=== PATIENT | male | born 1935 | race Caucasian/White ===

== ENCOUNTER 2019-11-12 16:43 | Inpatient (IN) | payer OTHER ==
[~2019-11-12] VITALS: Ht 183.4 cm; Wt 99.8 kg
[2019-11-12] MEDS ORDERED: IPRATROPIUM NEB FS 0.5 MG/2.5 ML AMPUL.NEB ONE (16:56)
[2019-11-12] MEDS ORDERED: ALBUTEROL FS 2.5 MG/3 ML VIAL.NEB ONE (16:56)
[2019-11-12] MEDS ORDERED: ALBUTEROL FS 2.5 MG/3 ML VIAL.NEB NEB ONE (17:00)
[2019-11-12] MEDS ORDERED: IPRATROPIUM NEB FS 0.5 MG/2.5 ML AMPUL.NEB NEB ONE (17:00)
[2019-11-12 17:11] LABS: BASOPHILS % (AUTO) 0.4 % (0.0-2.0); EOSINOPHILS % (AUTO) 0.2 % (0.0-6.0); HEMATOCRIT 42 % (39-51); HEMOGLOBIN 13.7 g/dL (13.5-17.5); LYMPHOCYTES % (AUTO) 13.6 % (20.0-44.0); MEAN CORPUSCULAR HGB CONC 33 g/dl (31.0-36.0); MEAN CORPUSCULAR VOLUME 91 fL (80-96); MONOCYTES # (AUTO) 0.1 /CMM (0.1-1.30); MONOCYTES % (AUTO) 0.8 % (2.0-12.0); NEUTROPHILS # (AUTO) 6.5 /CMM (1.8-8.9); PLATELET COUNT (AUTO) 204 /CMM (150-450); RED BLOOD CELL COUNT(AUTO) 4.64 MIL/uL (4.5-6.0); WHITE BLOOD COUNT (AUTO) 7.6 K/uL (4.3-11.0)
[2019-11-12] MEDS ORDERED: ACETAMINOPHEN 650 MG/SUPP.RECT RC ONE ×2 (17:12→17:30)
[2019-11-12 17:32] LABS: CARBON DIOXIDE 25 mmol/L (21-32); CHLORIDE 106 mmol/L (98-107); CREATININE 1.8 mg/dL (0.6-1.3); GLUCOSE 157 mg/dL (74-106); POTASSIUM 4.1 mmol/L (3.5-5.1); SODIUM SERUM 146 mmol/L (136-145); UREA NITROGEN, BLOOD 32 mg/dL (7-18)
[2019-11-12 17:37] LABS: ALANINE AMINOTRANSFERASE 39 U/L (12-78); ALBUMIN 3.1 g/dL (3.4-5.0); ALKALINE PHOSPHATASE 84 U/L (46-116); ASPARTATE AMINOTRANSFERASE 31 U/L (15-37); B-TYPE NATRIURETIC PEPTIDE 6428 PG/ML (0-125); BILIRUBIN,DIRECT 0.2 mg/dL (0.0-0.2); BILIRUBIN,TOTAL 0.7 mg/dL (0.2-1.0); TOTAL PROTEIN, SERUM 7.3 g/dL (6.4-8.2)
[2019-11-12] MEDS ORDERED: PIPERACILLIN /TAZOBACTAM 3.375 G VIAL IV ONE (17:52)
[2019-11-12] MEDS ORDERED: VANCOMYCIN 1 GM VIAL ONE (17:52)
[2019-11-12] MEDS ORDERED: PIPERACILLIN /TAZOBACTAM 3.375 G in IV D5W 50 ML IV ONE (18:00)
[2019-11-12] MEDS ORDERED: VANCOMYCIN 1 GM in IV D5W 250 ML IV ONE (18:00)
[2019-11-12 20:20] VITALS: BP 133/77
[2019-11-12] MEDS ORDERED: CALC-20 PO (20:57)
[2019-11-12] MEDS ORDERED: HYDR-4303 PO (20:58)
[2019-11-12] MEDS ORDERED: DONE5TAB34 PO (20:58)
[2019-11-12] MEDS ORDERED: DOCU100C36 PO (20:58)
[2019-11-12] MEDS ORDERED: LISI-603 PO (20:58)
[2019-11-12] MEDS ORDERED: DULO20CA PO (20:58)
[2019-11-12] MEDS ORDERED: LACT10SO68 PO (20:58)
[2019-11-12] MEDS ORDERED: FURO-145 PO (20:58)
[2019-11-12] MEDS ORDERED: TERA10CA4 PO (20:58)
[2019-11-12] MEDS ORDERED: METO25TA6 PO (20:58)
[2019-11-12] MEDS ORDERED: MULT1TAB73 PO (20:58)
[2019-11-12] MEDS ORDERED: IV NS 0.9% 1,000 ML IV PRN (21:03)
[2019-11-12 21:10] VITALS: BP 133/77
[2019-11-12] MEDS ORDERED: ACETAMINOPHEN 325 MG TABLET PO PRN (21:30)
[2019-11-12] MEDS ORDERED: Z GUARD REMEDY 2 OZ OINT TP PRN (21:30)
[2019-11-12] MEDS ORDERED: MAG HYDROX/AL HYDROX/SIMETH 30 ML UDC PO PRN (21:30)
[2019-11-12] MEDS ORDERED: MAGNESIUM HYDROXIDE 30 ML UDC PO PRN (21:30)
[2019-11-12] MEDS ORDERED: ONDANSETRON HCL/PF 4 MG/2 ML VIAL IVP PRN (21:30)
[2019-11-13] VITALS (7 sets, daily range): BP systolic 78–133; BP diastolic 22–78
[2019-11-13] MEDS ORDERED: FUROSEMIDE 40 MG/4 ML VIAL IV ONE (01:00)
[2019-11-13] MEDS ORDERED: ALBUTEROL FS 2.5 MG/0.5 ML VIAL.NEB NEB PRN (01:00)
[2019-11-13] MEDS ORDERED: PIPERACILLIN /TAZOBACTAM 2.25 G VIAL IV ONE (06:10)
[2019-11-13] MEDS: PIPERACILLIN /TAZOBACTAM 2.25 G in IV NS 0.9% 50 ML IV SCH ×3 (06:14)
[2019-11-13 07:46] LABS: EOSINOPHILS % (AUTO) 0.1 % (0.0-6.0); HEMATOCRIT 40 % (39-51); LYMPHOCYTES # (AUTO) 0.2 /CMM (0.8-4.8); LYMPHOCYTES % (AUTO) 1.8 % (20.0-44.0); MEAN CORPUSCULAR HGB CONC 33 g/dl (31.0-36.0); MEAN CORPUSCULAR VOLUME 90 fL (80-96); MONOCYTES # (AUTO) 0.2 /CMM (0.1-1.30); MONOCYTES % (AUTO) 1.3 % (2.0-12.0); NEUTROPHILS # (AUTO) 12.2 /CMM (1.8-8.9); NEUTROPHILS % (AUTO) 96.8 % (43.0-81.0); PLATELET COUNT (AUTO) 136 /CMM (150-450); RED BLOOD CELL COUNT(AUTO) 4.44 MIL/uL (4.5-6.0); WHITE BLOOD COUNT (AUTO) 12.6 K/uL (4.3-11.0)
[2019-11-13 08:05] LABS: CALCIUM, SERUM 8.6 mg/dL (8.5-10.1); CARBON DIOXIDE 23 mmol/L (21-32); CHLORIDE 109 mmol/L (98-107); CREATININE 3.4 mg/dL (0.6-1.3); GLUCOSE 106 mg/dL (74-106); MAGNESIUM 1.7 mg/dL (1.8-2.4); PHOSPHORUS 2.3 mg/dL (2.5-4.9); POTASSIUM 3.4 mmol/L (3.5-5.1); SODIUM SERUM 147 mmol/L (136-145); UREA NITROGEN, BLOOD 46 mg/dL (7-18)
[2019-11-13] MEDS ORDERED: FEE PK DOSING 1 MIN EA MC ONE (08:23)
[2019-11-13] MEDS: TERAZOSIN HCL 5 MG CAPSULE PO SCH (08:37)
[2019-11-13] MEDS ORDERED: FUROSEMIDE 40 MG/4 ML VIAL IV SCH (09:00)
[2019-11-13] MEDS: MULTIVITAMINS,THERAGRAN 1 UDTAB TABLET PO SCH (09:17)
[2019-11-13] MEDS: DOCUSATE SODIUM 100 MG CAPSULE PO SCH ×2 (09:17→16:53)
[2019-11-13] MEDS: DULOXETINE HCL 20 MG CAPSULE.DR PO SCH (09:17)
[2019-11-13] MEDS: LACTULOSE 10 G/15 ML UDC (PYXIS) PO SCH ×2 (09:17→16:53)
[2019-11-13] MEDS: CALCIUM CARB 600MG /VIT D 1 EACH TABLET PO SCH ×2 (09:17→16:53)
[2019-11-13 09:42] LABS: BAND % (MANUAL) 24 % (0.0-5.0); LYMPHOCYTES % (MANUAL) 6 % (16-48); METAMYELOCYTES % 3 % (0-0); MONOCYTES % (MANUAL) 4 % (0-11.0); NEUTROPHILS % (MANUAL) 63 (42-76)
[2019-11-13] MEDS ORDERED: IV NS 0.9% 1,000 ML BAG IV PRN (10:00)
[2019-11-13] MEDS ORDERED: POTASSIUM CHLORIDE 20 MEQ TAB.PRT.SR PO SCH (10:30)
[2019-11-13] MEDS ORDERED: IV NS 0.9% 500 ML IV ONE (10:30)
[2019-11-13] MEDS: PIPERACILLIN /TAZOBACTAM 3.375 G in IV D5W 50 ML IV SCH ×2 (11:23→17:37)
[2019-11-13] MEDS: IV D5/0.45 NACL 1,000 ML IV PRN (11:23)
[2019-11-13] MEDS ORDERED: VANCOMYCIN 1 GM in IV D5W 250 ML IV SCH (14:00)
[2019-11-13 15:05] LABS: APPEARANCE,URINE CLOUDY (CLEAR); BILIRUBIN,URINE NEGATIVE (NEGATIVE); BLOOD, URINE LARGE Ery/uL (NEGATIVE); COLOR,URINE YELLOW (YELLOW); KETONES,URINE NEGATIVE (NEGATIVE); LEUKOCYTE ESTERASE ,URINE LARGE (NEGATIVE); NITRITE, URINE NEGATIVE (NEGATIVE); PROTEIN,URINE 100 mg/dl (NEGATIVE); UGLUCOSE NEGATIVE (NEGATIVE); UROBILINOGEN,URINE 0.2 EU/dL (0.2)
[2019-11-13 15:28] LABS: BACTERIA,URINE 4+ /HPF (None Seen); RBC,URINE 21-50 /HPF (0-2); SQUAMOUS EPITHELIAL CELL,UR 0-2 /HPF (None Seen); WBC,URINE 81-100 /HPF (0-3)
[2019-11-13 16:43] LABS: EOSINOPHIL,URINE None Seen
[2019-11-13] MEDS ORDERED: DONEPEZIL 5 MG TABLET PO SCH (18:00)
[2019-11-13] MEDS: MEROPENEM 500 MG in IV NS 0.9% 50 ML IV SCH (20:00)
[2019-11-13] MEDS: MEROPENEM 500 MG in IV NS 0.9% 100 ML IV SCH (21:03)
[2019-11-13] MEDS: DONEPEZIL 5 MG TABLET PO SCH (21:03)
[2019-11-14 01:24] LABS: CREATININE, URINE 78.6 MG/DL (30.0-125.0); URINE TOTAL PROTEIN 173.1 mg/dL (0-11.9)
[2019-11-14 08:00] VITALS: BP 111/54
[2019-11-14] MEDS: MEROPENEM 500 MG in IV NS 0.9% 50 ML IV SCH (08:00)
[2019-11-14] MEDS: MEROPENEM 500 MG in IV NS 0.9% 100 ML IV SCH ×2 (09:38→20:26)
[2019-11-14] MEDS: LACTULOSE 10 G/15 ML UDC (PYXIS) PO SCH ×2 (09:38→17:38)
[2019-11-14] MEDS: CALCIUM CARB 600MG /VIT D 1 EACH TABLET PO SCH ×2 (09:39→17:38)
[2019-11-14] MEDS: DOCUSATE SODIUM 100 MG CAPSULE PO SCH ×2 (09:39→17:38)
[2019-11-14] MEDS: MULTIVITAMINS,THERAGRAN 1 UDTAB TABLET PO SCH (09:39)
[2019-11-14] MEDS: TERAZOSIN HCL 5 MG CAPSULE PO SCH (09:39)
[2019-11-14] MEDS: DULOXETINE HCL 20 MG CAPSULE.DR PO SCH (09:39)
[2019-11-14 12:32] LABS: EOSINOPHILS % (AUTO) 1.6 % (0.0-6.0); HEMATOCRIT 37 % (39-51); HEMOGLOBIN 11.9 g/dL (13.5-17.5); LYMPHOCYTES # (AUTO) 0.9 /CMM (0.8-4.8); MEAN CORPUSCULAR HGB CONC 32 g/dl (31.0-36.0); MEAN CORPUSCULAR VOLUME 90 fL (80-96); MONOCYTES % (AUTO) 4.4 % (2.0-12.0); NEUTROPHILS # (AUTO) 20.2 /CMM (1.8-8.9); PLATELET COUNT (AUTO) 100 /CMM (150-450); RED BLOOD CELL COUNT(AUTO) 4.09 MIL/uL (4.5-6.0); WHITE BLOOD COUNT (AUTO) 22.4 K/uL (4.3-11.0)
[2019-11-14 12:46] LABS: ALANINE AMINOTRANSFERASE 30 U/L (12-78); ALBUMIN 2.1 g/dL (3.4-5.0); ALKALINE PHOSPHATASE 72 U/L (46-116); ASPARTATE AMINOTRANSFERASE 46 U/L (15-37); BILIRUBIN,TOTAL 0.5 mg/dL (0.2-1.0); CALCIUM, SERUM 7.8 mg/dL (8.5-10.1); CARBON DIOXIDE 27 mmol/L (21-32); CHLORIDE 106 mmol/L (98-107); CREATININE 4.7 mg/dL (0.6-1.3); GLUCOSE 115 mg/dL (74-106); MAGNESIUM 2.1 mg/dL (1.8-2.4); PHOSPHORUS 5.4 mg/dL (2.5-4.9); SODIUM SERUM 145 mmol/L (136-145); TOTAL PROTEIN, SERUM 5.8 g/dL (6.4-8.2); UREA NITROGEN, BLOOD 73 mg/dL (7-18)
[2019-11-14 12:56] LABS: CREATINE KINASE, TOTAL 1365 U/L (39-308)
[2019-11-14 13:08] LABS: BAND % (MANUAL) 18 % (0.0-5.0); LYMPHOCYTES % (MANUAL) 6 % (16-48); MONOCYTES % (MANUAL) 4 % (0-11.0); NEUTROPHILS % (MANUAL) 72 (42-76)
[2019-11-14] MEDS: IV D5/0.45 NACL 1,000 ML IV PRN ×2 (13:23→20:40)
[2019-11-14] MEDS ORDERED: PERMETHRIN 5% CRM 60 GM TUBE TP ONE (14:30)
[2019-11-14 16:00] VITALS: BP 93/47
[2019-11-14 20:00] VITALS: BP 94/55
[2019-11-14] MEDS: DONEPEZIL 5 MG TABLET PO SCH (21:02)
[2019-11-15 03:21] VITALS: BP 101/46
[2019-11-15 09:00] VITALS: BP 108/50
[2019-11-15] MEDS: TERAZOSIN HCL 5 MG CAPSULE PO SCH (09:00)
[2019-11-15] MEDS: MEROPENEM 500 MG in IV NS 0.9% 100 ML IV SCH (09:06)
[2019-11-15] MEDS: DOCUSATE SODIUM 100 MG CAPSULE PO SCH ×2 (09:07→17:44)
[2019-11-15] MEDS: DULOXETINE HCL 20 MG CAPSULE.DR PO SCH (09:07)
[2019-11-15] MEDS: MULTIVITAMINS,THERAGRAN 1 UDTAB TABLET PO SCH (09:07)
[2019-11-15] MEDS: CALCIUM CARB 600MG /VIT D 1 EACH TABLET PO SCH ×2 (09:08→17:44)
[2019-11-15] MEDS: LACTULOSE 10 G/15 ML UDC (PYXIS) PO SCH ×2 (09:08→17:44)
[2019-11-15 10:06] LABS: *SPE A/G RATIO 0.8 (0.7-1.7); *SPE ALBUMIN 2.2 g/dL (2.9-4.4); *SPE ALPHA-1-GLOBULIN 0.4 g/dL (0.0-0.4); *SPE ALPHA-2-GLOBULIN 0.9 g/dL (0.4-1.0); *SPE BETA GLOBULIN 0.6 g/dL (0.7-1.3); *SPE GLOBULIN, TOTAL 2.6 g/dL (2.2-3.9); *SPE M-SPIKE 0.3 g/dL (Not Observed); *SPEGAMMA GLOBULIN 0.7 g/dL (0.4-1.8)
[2019-11-15 14:29] LABS: BASOPHILS % (AUTO) 0.2 % (0.0-2.0); EOSINOPHILS % (AUTO) 0.9 % (0.0-6.0); HEMATOCRIT 38 % (39-51); HEMOGLOBIN 12.3 g/dL (13.5-17.5); LYMPHOCYTES # (AUTO) 0.8 /CMM (0.8-4.8); MEAN CORPUSCULAR HGB CONC 32 g/dl (31.0-36.0); MEAN CORPUSCULAR VOLUME 91 fL (80-96); MONOCYTES % (AUTO) 4.8 % (2.0-12.0); NEUTROPHILS % (AUTO) 90.1 % (43.0-81.0); PLATELET COUNT (AUTO) 84 /CMM (150-450); RED BLOOD CELL COUNT(AUTO) 4.25 MIL/uL (4.5-6.0)
[2019-11-15 14:52] LABS: ALANINE AMINOTRANSFERASE 39 U/L (12-78); ALBUMIN 1.9 g/dL (3.4-5.0); ALKALINE PHOSPHATASE 85 U/L (46-116); ASPARTATE AMINOTRANSFERASE 81 U/L (15-37); BILIRUBIN,TOTAL 0.3 mg/dL (0.2-1.0); CALCIUM, SERUM 7.9 mg/dL (8.5-10.1); CARBON DIOXIDE 25 mmol/L (21-32); CHLORIDE 105 mmol/L (98-107); CREATININE 4.5 mg/dL (0.6-1.3); GLUCOSE 109 mg/dL (74-106); MAGNESIUM 2.2 mg/dL (1.8-2.4); PHOSPHORUS 5.1 mg/dL (2.5-4.9); POTASSIUM 4.4 mmol/L (3.5-5.1); SODIUM SERUM 141 mmol/L (136-145); TOTAL PROTEIN, SERUM 5.8 g/dL (6.4-8.2)
[2019-11-15 14:56] LABS: UREA NITROGEN, BLOOD 89 mg/dL (7-18)
[2019-11-15 16:00] VITALS: BP 99/55
[2019-11-15 20:00] VITALS: BP 106/56
[2019-11-15] MEDS: CEFEPIME 1 GM in IV D5W 50 ML IV SCH (20:57)
[2019-11-15] MEDS: DONEPEZIL 5 MG TABLET PO SCH (21:02)
[2019-11-16 06:29] LABS: BASOPHILS % (AUTO) 0.1 % (0.0-2.0); EOSINOPHILS % (AUTO) 1.1 % (0.0-6.0); HEMATOCRIT 37 % (39-51); LYMPHOCYTES # (AUTO) 0.8 /CMM (0.8-4.8); LYMPHOCYTES % (AUTO) 4.8 % (20.0-44.0); MEAN CORPUSCULAR HGB CONC 33 g/dl (31.0-36.0); MEAN CORPUSCULAR VOLUME 89 fL (80-96); MONOCYTES # (AUTO) 0.5 /CMM (0.1-1.30); NEUTROPHILS # (AUTO) 14.9 /CMM (1.8-8.9); PLATELET COUNT (AUTO) 88 /CMM (150-450); RED BLOOD CELL COUNT(AUTO) 4.13 MIL/uL (4.5-6.0); WHITE BLOOD COUNT (AUTO) 16.4 K/uL (4.3-11.0)
[2019-11-16 06:51] LABS: ALANINE AMINOTRANSFERASE 38 U/L (12-78); ALKALINE PHOSPHATASE 89 U/L (46-116); ASPARTATE AMINOTRANSFERASE 54 U/L (15-37); BILIRUBIN,TOTAL 0.4 mg/dL (0.2-1.0); CALCIUM, SERUM 8.1 mg/dL (8.5-10.1); CARBON DIOXIDE 27 mmol/L (21-32); CHLORIDE 106 mmol/L (98-107); CREATININE 3.9 mg/dL (0.6-1.3); GLUCOSE 86 mg/dL (74-106); MAGNESIUM 2.3 mg/dL (1.8-2.4); POTASSIUM 4.2 mmol/L (3.5-5.1); SODIUM SERUM 143 mmol/L (136-145); TOTAL PROTEIN, SERUM 5.6 g/dL (6.4-8.2)
[2019-11-16 06:59] LABS: UREA NITROGEN, BLOOD 94 mg/dL (7-18)
[2019-11-16] MEDS: HYDROCODONE/APAP 5/325MG 1 EACH TABLET PO PRN ×2 (07:42→14:25)
[2019-11-16 07:48] LABS: BAND % (MANUAL) 2 % (0.0-5.0); NEUTROPHILS % (MANUAL) 93 (42-76)
[2019-11-16 07:49] LABS: EOSINOPHILS % (MANUAL) 2 % (0-4); LYMPHOCYTES % (MANUAL) 1 % (16-48); MONOCYTES % (MANUAL) 2 % (0-11.0)
[2019-11-16] MEDS: CALCIUM CARB 600MG /VIT D 1 EACH TABLET PO SCH ×2 (08:39→16:23)
[2019-11-16] MEDS: MULTIVITAMINS,THERAGRAN 1 UDTAB TABLET PO SCH (08:39)
[2019-11-16] MEDS: DOCUSATE SODIUM 100 MG CAPSULE PO SCH ×2 (08:39→16:23)
[2019-11-16] MEDS: LACTULOSE 10 G/15 ML UDC (PYXIS) PO SCH ×2 (08:39→16:23)
[2019-11-16] MEDS: DULOXETINE HCL 20 MG CAPSULE.DR PO SCH (08:39)
[2019-11-16] MEDS: TERAZOSIN HCL 5 MG CAPSULE PO SCH (08:40)
[2019-11-16] MEDS: CEFEPIME 1 GM in IV D5W 50 ML IV SCH ×2 (08:45→21:03)
[2019-11-16 20:00] VITALS: BP 119/53
[2019-11-16] MEDS: DONEPEZIL 5 MG TABLET PO SCH (21:03)
[2019-11-17 07:27] LABS: BASOPHILS % (AUTO) 0.3 % (0.0-2.0); EOSINOPHILS % (AUTO) 1.1 % (0.0-6.0); HEMATOCRIT 39 % (39-51); HEMOGLOBIN 12.7 g/dL (13.5-17.5); LYMPHOCYTES # (AUTO) 1.1 /CMM (0.8-4.8); LYMPHOCYTES % (AUTO) 8.2 % (20.0-44.0); MEAN CORPUSCULAR HGB CONC 33 g/dl (31.0-36.0); MEAN CORPUSCULAR VOLUME 89 fL (80-96); MONOCYTES # (AUTO) 0.8 /CMM (0.1-1.30); MONOCYTES % (AUTO) 5.8 % (2.0-12.0); NEUTROPHILS % (AUTO) 84.6 % (43.0-81.0); PLATELET COUNT (AUTO) 96 /CMM (150-450); RED BLOOD CELL COUNT(AUTO) 4.38 MIL/uL (4.5-6.0)
[2019-11-17 07:52] LABS: CALCIUM, SERUM 8.4 mg/dL (8.5-10.1); CARBON DIOXIDE 26 mmol/L (21-32); CHLORIDE 110 mmol/L (98-107); CREATININE 2.7 mg/dL (0.6-1.3); GLUCOSE 109 mg/dL (74-106); MAGNESIUM 2.4 mg/dL (1.8-2.4); PHOSPHORUS 3.4 mg/dL (2.5-4.9); POTASSIUM 4.3 mmol/L (3.5-5.1); SODIUM SERUM 145 mmol/L (136-145)
[2019-11-17 08:00] VITALS: BP 133/59
[2019-11-17 08:05] LABS: UREA NITROGEN, BLOOD 94 mg/dL (7-18)
[2019-11-17] MEDS: CEFEPIME 1 GM in IV D5W 50 ML IV SCH ×2 (09:19→21:50)
[2019-11-17] MEDS: MULTIVITAMINS,THERAGRAN 1 UDTAB TABLET PO SCH (09:19)
[2019-11-17] MEDS: TERAZOSIN HCL 5 MG CAPSULE PO SCH (09:19)
[2019-11-17] MEDS: DULOXETINE HCL 20 MG CAPSULE.DR PO SCH (09:19)
[2019-11-17] MEDS: LACTULOSE 10 G/15 ML UDC (PYXIS) PO SCH ×2 (09:19→16:31)
[2019-11-17] MEDS: DOCUSATE SODIUM 100 MG CAPSULE PO SCH ×2 (09:19→16:31)
[2019-11-17] MEDS: CALCIUM CARB 600MG /VIT D 1 EACH TABLET PO SCH ×2 (09:19→16:31)
[2019-11-17 16:00] VITALS: BP 116/49
[2019-11-17 20:00] VITALS: BP 137/55
[2019-11-17 20:19] VITALS: BP 137/55
[2019-11-17] MEDS: DONEPEZIL 5 MG TABLET PO SCH (21:50)
[2019-11-18 08:00] VITALS: BP 134/58
[2019-11-18] MEDS: CEFEPIME 1 GM in IV D5W 50 ML IV SCH ×2 (08:36→21:20)
[2019-11-18] MEDS: DOCUSATE SODIUM 100 MG CAPSULE PO SCH ×2 (08:36→16:36)
[2019-11-18] MEDS: MULTIVITAMINS,THERAGRAN 1 UDTAB TABLET PO SCH (08:36)
[2019-11-18] MEDS: DULOXETINE HCL 20 MG CAPSULE.DR PO SCH (08:36)
[2019-11-18] MEDS: CALCIUM CARB 600MG /VIT D 1 EACH TABLET PO SCH ×2 (08:40→16:36)
[2019-11-18] MEDS: TERAZOSIN HCL 5 MG CAPSULE PO SCH (08:40)
[2019-11-18] MEDS: LACTULOSE 10 G/15 ML UDC (PYXIS) PO SCH ×2 (08:40→16:36)
[2019-11-18 12:25] LABS: BASOPHILS % (AUTO) 0.4 % (0.0-2.0); EOSINOPHILS % (AUTO) 2.4 % (0.0-6.0); HEMATOCRIT 39 % (39-51); HEMOGLOBIN 12.8 g/dL (13.5-17.5); LYMPHOCYTES % (AUTO) 13.7 % (20.0-44.0); MEAN CORPUSCULAR HGB CONC 33 g/dl (31.0-36.0); MEAN CORPUSCULAR VOLUME 90 fL (80-96); MONOCYTES # (AUTO) 0.6 /CMM (0.1-1.30); MONOCYTES % (AUTO) 8.1 % (2.0-12.0); NEUTROPHILS # (AUTO) 5.5 /CMM (1.8-8.9); NEUTROPHILS % (AUTO) 75.4 % (43.0-81.0); PLATELET COUNT (AUTO) 107 /CMM (150-450); RED BLOOD CELL COUNT(AUTO) 4.39 MIL/uL (4.5-6.0); WHITE BLOOD COUNT (AUTO) 7.3 K/uL (4.3-11.0)
[2019-11-18 12:58] LABS: ALANINE AMINOTRANSFERASE 61 U/L (12-78); ALBUMIN 2.2 g/dL (3.4-5.0); ALKALINE PHOSPHATASE 79 U/L (46-116); ASPARTATE AMINOTRANSFERASE 43 U/L (15-37); BILIRUBIN,TOTAL 0.4 mg/dL (0.2-1.0); CALCIUM, SERUM 9.1 mg/dL (8.5-10.1); CARBON DIOXIDE 31 mmol/L (21-32); CHLORIDE 114 mmol/L (98-107); CREATININE 1.9 mg/dL (0.6-1.3); GLUCOSE 135 mg/dL (74-106); MAGNESIUM 2.8 mg/dL (1.8-2.4); PHOSPHORUS 3.9 mg/dL (2.5-4.9); POTASSIUM 4.7 mmol/L (3.5-5.1); SODIUM SERUM 150 mmol/L (136-145); TOTAL PROTEIN, SERUM 5.9 g/dL (6.4-8.2)
[2019-11-18 12:59] LABS: UREA NITROGEN, BLOOD 80 mg/dL (7-18)
[2019-11-18 16:00] VITALS: BP 134/52
[2019-11-18 20:00] VITALS: BP 145/54
[2019-11-18] MEDS: DONEPEZIL 5 MG TABLET PO SCH (21:20)
[2019-11-19 07:16] LABS: ALANINE AMINOTRANSFERASE 85 U/L (12-78); ALBUMIN 2.2 g/dL (3.4-5.0); ALKALINE PHOSPHATASE 95 U/L (46-116); ASPARTATE AMINOTRANSFERASE 51 U/L (15-37); BILIRUBIN,TOTAL 0.3 mg/dL (0.2-1.0); CALCIUM, SERUM 9.1 mg/dL (8.5-10.1); CARBON DIOXIDE 30 mmol/L (21-32); CHLORIDE 117 mmol/L (98-107); CREATININE 1.7 mg/dL (0.6-1.3); GLUCOSE 113 mg/dL (74-106); MAGNESIUM 2.8 mg/dL (1.8-2.4); PHOSPHORUS 4.2 mg/dL (2.5-4.9); POTASSIUM 4.6 mmol/L (3.5-5.1); SODIUM SERUM 155 mmol/L (136-145); TOTAL PROTEIN, SERUM 6.1 g/dL (6.4-8.2); UREA NITROGEN, BLOOD 72 mg/dL (7-18)
[2019-11-19 08:00] VITALS: BP 154/92
[2019-11-19 08:07] LABS: BASOPHILS % (AUTO) 0.2 % (0.0-2.0); EOSINOPHILS % (AUTO) 2.7 % (0.0-6.0); HEMATOCRIT 43 % (39-51); HEMOGLOBIN 13.4 g/dL (13.5-17.5); LYMPHOCYTES # (AUTO) 1.2 /CMM (0.8-4.8); LYMPHOCYTES % (AUTO) 14.5 % (20.0-44.0); MEAN CORPUSCULAR HGB CONC 32 g/dl (31.0-36.0); MEAN CORPUSCULAR VOLUME 91 fL (80-96); MONOCYTES # (AUTO) 0.7 /CMM (0.1-1.30); MONOCYTES % (AUTO) 8.1 % (2.0-12.0); NEUTROPHILS # (AUTO) 6.2 /CMM (1.8-8.9); NEUTROPHILS % (AUTO) 74.5 % (43.0-81.0); PLATELET COUNT (AUTO) 132 /CMM (150-450); RED BLOOD CELL COUNT(AUTO) 4.67 MIL/uL (4.5-6.0); WHITE BLOOD COUNT (AUTO) 8.4 K/uL (4.3-11.0)
[2019-11-19] MEDS: CALCIUM CARB 600MG /VIT D 1 EACH TABLET PO SCH ×2 (08:30→17:01)
[2019-11-19] MEDS: MULTIVITAMINS,THERAGRAN 1 UDTAB TABLET PO SCH (08:30)
[2019-11-19] MEDS: TERAZOSIN HCL 5 MG CAPSULE PO SCH (08:30)
[2019-11-19] MEDS: DOCUSATE SODIUM 100 MG CAPSULE PO SCH ×2 (08:31→17:01)
[2019-11-19] MEDS: LACTULOSE 10 G/15 ML UDC (PYXIS) PO SCH ×2 (08:31→17:01)
[2019-11-19] MEDS: DULOXETINE HCL 20 MG CAPSULE.DR PO SCH (08:31)
[2019-11-19] MEDS: CEFEPIME 1 GM in IV D5W 50 ML IV SCH (08:32)
[2019-11-19] MEDS ORDERED: IV D5W 1,000 ML IV ONE (10:30)
[2019-11-19 16:00] VITALS: BP 142/52
[2019-11-19] MEDS ORDERED: IV 1/2NS 1000 ML 1,000 ML IV PRN (16:30)
[2019-11-19] MEDS ORDERED: LEVOFLOXACIN (500MG) 500 MG TABLET PO SCH (18:00)
[2019-11-19] MEDS ORDERED: LEVOFLOXACIN (250MG) 250 MG TABLET PO SCH (19:00)
== END 2019-11-19 19:30 | disposition short-term general hospital (02) | DRG 871 ==
LOC: ER 16:46 → TELE 20:11 → MED 11-13 08:59 → TELE 11-19 08:52 → MED 11-19 12:16
PROVIDERS: ADMIT Internal Medicine; ATTEND Student in an Organized Health Care Education/Training Program
DX: A41.51 Sepsis due to Escherichia coli [E. coli] (principal); E43 Unspecified severe protein-calorie malnutrition; G93.41 Metabolic encephalopathy; I50.23 Acute on chronic systolic (congestive) heart failure; N17.0 Acute kidney failure with tubular necrosis; J96.01 Acute respiratory failure with hypoxia; N39.0 Urinary tract infection, site not specified; E87.0 Hyperosmolality and hypernatremia; E87.2 Acidosis; I11.0 Hypertensive heart disease with heart failure; F03.90 Unspecified dementia, unspecified severity, without behavioral disturbance, psychotic disturbance, mood disturbance, and anxiety; N40.0 Benign prostatic hyperplasia without lower urinary tract symptoms; Z68.29 Body mass index [BMI] 29.0-29.9, adult; F09 Unspecified mental disorder due to known physiological condition; B86 Scabies; R65.20 Severe sepsis without septic shock; Z66 Do not resuscitate; Z95.1 Presence of aortocoronary bypass graft; Z95.0 Presence of cardiac pacemaker; I73.9 Peripheral vascular disease, unspecified; M20.42 Other hammer toe(s) (acquired), left foot; M20.41 Other hammer toe(s) (acquired), right foot; J44.9 Chronic obstructive pulmonary disease, unspecified; F32.9 Major depressive disorder, single episode, unspecified
CPT/HCPCS: 36415; 71045-TC; 76770-TC; 80048-TC; 80053-TC; 80076-TC; 81000-TC; 82550-TC; 82570-TC; 83605-TC; 83735-TC; 83880; 83970; 84100-TC; 84155; 84155-TC; 84165; 84300-TC; 84484-TC; 85025-TC; 85730-TC; 87040-TC; 87081-TC; 87086-TC; 87186-TC; 92611-TC; 93307-TC; A4216; A4349; A6403; G0378; J0692; J1940; J2185; J2543; J3370; J3490; J7030; J7040; J7050; J7060; J7070